=== PATIENT | male | born 1985 | race Hispanic/Latino ===

== ENCOUNTER 2016-11-28 18:01 | Inpatient (IN) | payer BC ==
[2016-11-28 18:24] VITALS: BMI 34.9
--- NOTE | 2016-11-28 19:01 | ED PDOC ---
Arrival/HPI - General Chief Complaint: Psychiatric Evaluation Time Seen by Provider: 11/28/16 18:59 Historian: Patient - History of Present Illness Narrative History of Present Illness (Text): 11/28/16 19:44 31-year-old male is being transferred to this emergency room from [facility] in [place] for psychiatric admission for bipolar d/o and anxiety by Dr. Lou Jacobsen. Patient has no complaints at this time. Denies any fever, headache, nausea, chest pain, shortness of breath, abdominal pain. Past Medical History - Provider Review Nursing Documentation Reviewed: Yes - Psychiatric Hx Substance Use: No Family/Social History - Physician Review Nursing Documentation Reviewed: Yes Family/Social History: Unknown Family HX Smoking Status: Never Smoked Hx Alcohol Use: No Hx Substance Use: No Allergies/Home Meds Allergies/Adverse Reactions: Allergies antihistamines Allergy (Uncoded 11/28/16 18:31) ANAPHYLAXIS Home Medications: Home Meds Medication Instructions Recorded Confirmed Alprazolam [Xanax] 0.25 mg PO HS 11/28/16 11/28/16 Carbamazepine [Carbamazepine ER] 400 mg PO BID 11/28/16 11/28/16 Cholecalciferol [Vitamin D] 250,000 iu PO 11/28/16 Naproxen [Naprosyn] 500 mg PO BID 11/28/16 11/28/16 OLANZapine [ZyPREXA] 2.5 mg PO HS 11/28/16 11/28/16 Perampanel [Fycompa] 8 mg PO HS 11/28/16 11/28/16 Review of Systems - Review of Systems Constitutional: Normal. absent: Fatigue, Weight Change, Fevers Respiratory: Normal. absent: SOB, Cough, Sputum Cardiovascular: Normal. absent: Chest Pain, Palpitations, Orthopnea Gastrointestinal: Normal. absent: Abdominal Pain, Vomiting, Appetite Changes Musculoskeletal: Normal. absent: Arthralgias, Back Pain, Neck Pain Skin: Normal. absent: Rash, Pruritis, Skin Lesions Neurological: Normal. absent: Headache, Dizziness, Focal Weakness Psychiatric: Normal, Anxiety, Depression. absent: Suicidal Ideation Physical Exam Vital Signs Reviewed: Yes Vital Signs Temp Pulse Resp BP Pulse Ox 11/28/16 18:02 97.0 F L 82 14 125/85 96 Temperature: Afebrile Blood Pressure: Normal Pulse: Regular Respiratory Rate: Normal Appearance: Positive for: Well-Appearing, Non-Toxic, Comfortable Pain Distress: None Mental Status: Positive for: Alert and Oriented X 3 - Systems Exam Head: Present: Atraumatic, Normocephalic Pupils: Present: PERRL Mouth: Present: Moist Mucous Membranes Pharnyx: Present: Normal Neck: Present: Normal Range of Motion. No: MIDLINE TENDERNESS, Lymphadenopathy Respiratory/Chest: Present: Clear to Auscultation, Good Air Exchange. No: Respiratory Distress, Accessory Muscle Use, Wheezes, Rhonchi Cardiovascular: Present: Regular Rate and Rhythm, Normal S1, S2. No: Murmurs Abdomen: No: Tenderness, Distention, Rebound, Guarding Back: Present: Normal Inspection. No: CVA Tenderness, Midline Tenderness Upper Extremity: Present: Normal Inspection, Normal ROM, NORMAL PULSES. No: Edema Lower Extremity: Present: Normal Inspection, NORMAL PULSES, Normal ROM. No: Edema Neurological: Present: GCS=15, CN II-XII Intact, Speech Normal, Motor Func Grossly Intact, Normal Sensory Function Skin: Present: Warm, Dry, Normal Color. No: Rashes Psychiatric: Present: Alert, Oriented x 3, Normal Insight, Normal Concentration Medical Decision Making ED Course and Treatment: 11/28/16 19:48 31-year-old male is being transferred to this emergency room from [facility] in [place] for psychiatric admission for bipolar d/o and anxiety by Dr. Lou Jacobsen. Arrangements made for inpt psych admission. - PA / OLIVE GRADER / Resident Statement MD/DO has reviewed & agrees with the documentation as recorded. Disposition/Present on Arrival - Present on Arrival Any Indicators Present on Arrival: No History of DVT/PE: No History of Uncontrolled Diabetes: No Urinary Catheter: No History of Decub. Ulcer: No History Surgical Site Infection Following: None - Disposition Have Diagnosis and Disposition been Completed?: Yes Diagnosis: Bipolar disorder, Anxiety Disposition: HOSPITALIZED Disposition Time: 19:00 Patient Plan: Admission Patient Problems: Current Active Problems Problem Status Onset Bipolar disorder Acute Anxiety Acute Condition: STABLE
[2016-11-28] MEDS ORDERED: Alum-Mag Hydrox-Simethicone Susp (30 mL) PO PRN (22:13)
[2016-11-28] MEDS ORDERED: Magnesium Hydroxide Susp 30 ml UD PO PRN (22:13)
[2016-11-28] MEDS ORDERED: Naproxen 550 mg Tab PO SCH (22:15)
--- NOTE | 2016-11-29 00:02 | PCM.BM ---
<Carlos Matos - Last Filed: 11/29/16 00:00> Treatment Plan Problems - Problems identified on initial assessmt anxiety Date Initiated: 11/28/16 Time Initiated: 20:50 Assessment reference: NA Status: Active depression Date Initiated: 11/28/16 Time Initiated: 20:50 Assessment reference: NA Status: Referred Treatment assets and liabiliti Patient Assests: cooperative, educated, self-reliant, ADL independent Patient Liabilities: financial problems, poor support system, relationship conflicts - Milieu Protocol Maintain good personal hygiene: daily Encourage regular showers, daily Remind patient to perform daily oral care, daily Assist patient to perform ADL's Conduct patient checks and document Observation sheet: Q15 minutes Maintain personal safety: every shift Educate patient to report safety concerns to staff, every shift Monitor environment for contraband/sharps Medication safety: Monitor for expected outcome, potential side effects: every shift, Assess barriers to learning: every shift, Assess readiness for medication education: every shift Discharge/Continuing Care - Education Needs Education Needs: Patient Medication, Patient Diagnosis/Disease Process, Patient Coping Skills, Patient Anger Management skills - Discharge Discharge Criteria: Tolerates medication w/o severe side effects, Ability to care for self Discharge to:: Home <Lou Cat - Last Filed: 11/29/16 08:35> - Diagnosis (1) PTSD (post-traumatic stress disorder) Status: Acute Interventions: 11/29/16 08:35 Psychoeducation Psychopharmacology/adjustment of medications as needed/ monitoring possible side effects Evaluate pt on daily basis Compliance with medications and follow up appointments Suicide and homicide risk assessment and prevention, coping strategies, safety plan Reduction of symptoms Relaxation techniques and breathing exercises Improve functional status Family involvement As outpatient: cognitive behavioral therapy (2) Bipolar disorder Status: Acute Interventions: 11/29/16 08:36 Psychoeducation Psychopharmacology/adjustment of medications as needed/ monitoring possible side effects Monitor blood level of mood stabilizers Evaluate pt on daily basis Compliance with medications and follow up appointments Suicide and homicide risk assessment and prevention, coping strategies, safety plan Relapse prevention Reduction of symptoms Improve functional status Family involvement As outpatient: cognitive behavioral therapy <Isabel Alcantara - Last Filed: 11/30/16 14:48>
[2016-11-29 00:25] VITALS: O2SAT 95
[2016-11-29] MEDS ORDERED: carBAMazepine Chew Tab 100 MG Chew Tab PO SCH (08:00)
[2016-11-29 08:28] LABS: CHOLESTEROL 194 mg/dL (130-200); GLUCOSE,FASTING 96 mg/dL (65-110)
[2016-11-29] MEDS: Naproxen 550 mg Tab PO PRN (10:09)
--- NOTE | 2016-11-29 15:41 | CP.PCM.CON ---
History of Present Illness - History of Present Illness History of Present Illness: Neurology consult note for Dr. Kendrick's service HPI: Patient is a 31yo male with past medical history of bipolar disorder, anxiety, depression and seizure disorder that presented for inpatient psychiatric treatment for the aforementioned issues. Patient has a history of seizure disorder for which he is currently on tegretol 400mg PO BID. Neurology consulted for evaluation of seizure disorder. Patient denied chest pain, palpitations, SOB, abdominal pain, nausea, vomiting, focal weakness, numbness, tingling. 12point ROS as per HPI above otherwise negative PMH: as stated above Allergies: antihistamines Medications: reviewed and as per chart Family Hx: reviewed, non-contributory Past Patient History - Past Social History Smoking Status: Never Smoked - NEUROLOGICAL Hx Seizures: Yes - PSYCHIATRIC Hx Bipolar Disorder: Yes Hx Depression: Yes Hx Substance Use: No Meds Allergies/Adverse Reactions: Allergies Allergy/AdvReac Type Severity Reaction Status Date / Time antihistamines Allergy ANAPHYLAXIS Uncoded 11/28/16 23:02 - Medications Medications: Current Medications Acetaminophen (Tylenol 325mg Tab) 650 mg PO Q4 PRN PRN Reason: Pain, moderate (4-7) Al Hydrox/Mg Hydrox/Simethicone (Maalox Plus 30 Ml) 30 ml PO DAILY PRN PRN Reason: Upset Stomach Alprazolam (Xanax) 0.25 mg PO HS PRN; Protocol PRN Reason: Anxiety Stop: 12/05/16 22:16 Carbamazepine (Tegretol) 400 mg PO BID KERRI PRN Reason: Protocol Last Admin: 11/29/16 09:57 Dose: 400 mg Home Med (Home Med) 1 unit PO HS KERRI Lorazepam (Ativan) 2 mg PO Q6 PRN; Protocol PRN Reason: Agitation Lorazepam (Ativan) 2 mg IM Q6H PRN; Protocol PRN Reason: Anxiety Magnesium Hydroxide (Milk Of Magnesia) 30 ml PO DAILY PRN PRN Reason: Constipation Naproxen (Anaprox Ds) 550 mg PO BID PRN PRN Reason: Pain, moderate (4-7) Last Admin: 11/29/16 10:09 Dose: 550 mg Olanzapine (Zyprexa) 2.5 mg PO HS KERRI PRN Reason: Protocol Last Admin: 11/28/16 22:55 Dose: 2.5 mg Ziprasidone (Geodon Cap) 20 mg PO Q6 PRN; Protocol PRN Reason: Agitation Ziprasidone (Geodon Inj) 20 mg IM Q6 PRN; Protocol PRN Reason: Agitation Physical Exam - Constitutional Appears: No Acute Distress - Head Exam Head Exam: ATRAUMATIC, NORMAL INSPECTION, NORMOCEPHALIC - Eye Exam Eye Exam: EOMI Pupil Exam: PERRL - ENT Exam ENT Exam: Normal Exam - Neck Exam Neck exam: Positive for: Normal Inspection - Respiratory Exam Respiratory Exam: Clear to Auscultation Bilateral. absent: Rales, Rhonchi, Wheezes - Cardiovascular Exam Cardiovascular Exam: RRR, +S1, +S2. absent: Gallop, Rubs, Systolic Murmur - GI/Abdominal Exam GI & Abdominal Exam: Soft. absent: Distended, Firm, Guarding, Rebound, Rigid - Extremities Exam Extremities exam: Positive for: normal inspection. Negative for: pedal edema - Neurological Exam Neurological exam: Alert, CN II-XII Intact, Oriented x3 - Skin Skin Exam: Dry, Intact, Normal Color, Warm Results - Vital Signs Recent Vital Signs: Last Vital Signs Temp 97.4 F L 11/28/16 20:40 Pulse 88 11/28/16 20:40 Resp 18 11/28/16 20:40 BP 128/91 H 11/28/16 20:40 Pulse Ox 95 11/28/16 20:40 - Labs Labs: Laboratory Results - last 24 hr 11/29/16 11/29/16 07:40 07:40 Fasting Glucose 96 Triglycerides 178 H Cholesterol 194 LDL Cholesterol Direct 127 HDL Cholesterol 42 TSH 3rd Generation 4.25 Assessment & Plan - Assessment and Plan (Free Text) Plan: 31yo male with history of seizure disorder, bipolar disorder, depression, anxiety presents for inpatient psychiatric treatment. Neurology consulted for evaluation of seizure disorder. -EEG has been ordered and pending read -In the meantime, recommend continue tegretol 400mg PO BID -Continue inpatient psychiatric treatment as indicated -Further recommendations as per attending, Dr. Kendrick Patient seen and case discussed/reviewed with attending, Dr. Kendrick - Date & Time Date: 11/29/16 Time: 15:41
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
[2016-11-29] MEDS: FYCOMPA 8 MG PO SCH (21:37)
[2016-11-29] MEDS ORDERED: FYCOMPA 8 MG PO SCH (22:00)
--- NOTE | 2016-11-30 11:46 | CON ---
HISTORY OF PRESENT ILLNESS: The patient is 31 years old, was called for medical consult. The patient was seen and examined in the dayroom, has appropriate affect; however, seemed little anxious. The patient stated he has history of bipolar disorder, has been recently very depressed because his left him and he was very angry with his brother who brought him to the emergency room for further help. PAST MEDICAL HISTORY: Significant for: 1. Anxiety disorder. 2. Bipolar disorder. 3. History of seizure disorder, status post suicidal attempt, he tried to overdose with his seizure medication thinking that will calm him down. Otherwise, he does not have any significant chest pain or shortness of breath. No nausea, vomiting, or diarrhea. ALLERGIES: HE IS ALLERGIC TO ANTIHISTAMINE. MEDICATION AT HOME: He is on Tegretol 400 mg twice a day, Xanax 0.25 at bedtime, Fycompa 8 mg at bedtime, Zyprexa 2.5 at bedtime and Naprosyn for his back pain. SOCIAL HISTORY: He was but now he is . Denies smoking or drinking. REVIEW OF SYSTEMS: Significant for feeling anxious and depressed at times. His last seizure was in June. Other than that, he has been suffering from seizures for last 5 to 6 years. PHYSICAL EXAMINATION: GENERAL: He is awake, alert, oriented, communicative, ambulatory. VITAL SIGNS: He is afebrile, pulse 91, respiration 18, blood pressure 122/53. LUNGS: Bilateral fair airflow. No rhonchi or crackles. HEART: S1 and S2 audible. ABDOMEN: Soft, nontender. No rebound. No guarding. NEUROLOGICAL: The patient is awake, alert, oriented, communicative, ambulatory. LABORATORY DATA: Triglyceride 178, TSH is 4.25. Fasting blood sugar is 96. ASSESSMENT: 1. Seizure disorder. 2. Bipolar disorder. 3. Anxiety disorder. 4. Hypertension. 5. Chronic back pain. PLAN: So currently, the patient is on Naprosyn. He is on multiple psych medications including Zyprexa, Ativan, Cogentin, Risperdal, Tegretol and EEG has been ordered. Thanks for consult. We will follow he patient with you. David Hines MD
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
--- NOTE | 2016-11-30 15:50 | PN ---
DATE: SUBJECTIVE: The patient is 31 years old, seen and examined, ambulatory, not in any distress, eating and tolerating, offers no complaint. PHYSICAL EXAMINATION: VITAL SIGNS: He is afebrile, pulse 75, respirations 20 and blood pressure 127/72. LUNGS: Bilateral fair air flow. No rhonchi or crackle. HEART: S1 and S2 audible. ABDOMEN: Soft and nontender. No rebound. No guarding. NEUROLOGIC: He is awake, alert, oriented and communicative. ASSESSMENT: 1. Bipolar disorder. 2. Anxiety disorder. 3. Seizure disorder. 4. History of chronic back pain. PLAN: Medically, he is stable on current medical treatment. I will signoff and see the patient as needed. David Hines MD
--- NOTE | 2016-11-30 16:51 | EEG ---
DATE: CONDITION OF THE RECORDING: Awake and history of seizure. PAST MEDICAL HISTORY: History of anxiety, bipolar . DESCRIPTION: Background activity of this tracing was composed of 8 to 9 cycles per second of alpha rhythm. A small amount of beta activity 16 to 20 cycles per second was noted in the tracing. Theta activity 5 to 7 cycles per second was noted in the tracing. Drowsiness was composed of mixed beta and theta activities. No paroxysmal activity was seen in the record. IMPRESSION: Normal awake, drowsy electroencephalogram. Beny Kendrick MD
[2016-11-30] MEDS: FYCOMPA 8 MG PO SCH (21:06)
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
[2016-12-01] MEDS: FYCOMPA 8 MG PO SCH (21:17)
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
[2016-12-02] MEDS: FYCOMPA 8 MG PO SCH (22:51)
--- NOTE | 2016-12-03 09:13 | PCM.PYCHPN ---
Psychiatric Progress Note - Psychiatric Progress Note Patient seen today, length of contact: 25 min Patient Chief Complaint: better Problems Identified/Issues Discussed: I reviewed assessment and recent notes. Patient was interviewed in the dayroom. He is fairly groomed and presents as calm, related and well-oriented to month, year, location and circumstances. Reports that he is getting better on the unit. Slept well. Denies any new concerns since yesterday except for blood in urine. He is coherent and doesn't demonstrate any symptoms of a thought disorder. Patient is tolerating his medications and denies any new pain or discomfort. Staff notes indicate that patient has been visible and pleasant on the unit. Observed Interacting with other patients There were no behavioral issues overnight Diagnostic Results: r/o bipolar disorder, most recent episode mixed Rule out impulse control disorder As per history questionable Asperger's syndrome r/o PTSD Medication Change: No Medical Record Reviewed: Yes Mental Status Examination - Cognitive Function Orientation: Person, Place, Situation Attention: WNL - Mood Mood: Neutral - Affect Affect: Other (calm, neutral) - Speech Speech: Appropriate - Formal Thought Process Formal Thought Process: No Impairment - Suicidal Ideation Suicidal Ideation: No - Homicidal Ideation Homicidal Ideation: No Goal/Treatment Plan - Goal/Treatment Plan Need for Continued Stay: Remain at risks for inpatient hospitalization, Severe depression anxiety, Discharge may exacerbated symptoms, Severe functional impairment Progress Toward Problem(s) and Goals/Treatment Plan: * c/w current tx and plan * No new weekend labs * Vitals reviewed and noted below: Selected Entries 12/02/16 12/02/16 06:59 15:00 Temperature 97.8 F Pulse Rate 67 83 Respiratory 18 Rate Blood Pressure 130/75 125/77 Estimated Date of D/C: 12/05/16 (will monitor closely)
[2016-12-03 10:22] LABS: PH,URINE 6.5 (4.7-8.0); URINE APPEARANCE CLEAR (CLEAR); URINE BILIRUBIN NEGATIVE (NEGATIVE); URINE BLOOD NEGATIVE (NEGATIVE); URINE COLOR YELLOW (YELLOW); URINE GLUCOSE (UA) NEGATIVE (NEGATIVE); URINE KETONE NEGATIVE (NEGATIVE); URINE LEUKOCYTE ESTERASE NEGATIVE Leu/uL (NEGATIVE); URINE PROTEIN NEGATIVE mg/dL (<30 mg/dL); URINE UROBILINOGEN 0.2 E.U./dL (<1 E.U./dL)
[2016-12-03] MEDS: Naproxen 550 mg Tab PO PRN (11:18)
[2016-12-03] MEDS: FYCOMPA 8 MG PO SCH (21:20)
[2016-12-04 06:59] VITALS: RESP 20
[2016-12-04] MEDS: Naproxen 550 mg Tab PO PRN (08:50)
--- NOTE | 2016-12-04 10:20 | PCM.PYCHPN ---
Psychiatric Progress Note - Psychiatric Progress Note Patient seen today, length of contact: 25 min Patient Chief Complaint: better Problems Identified/Issues Discussed: I reviewed recent notes and patient was interviewed at bedside. He is fairly groomed and presents as calm, related and well-oriented to month, year, location and circumstances. Still feels he is improving on the unit. Slept well. He is coherent and doesn't demonstrate any symptoms of a thought disorder. Patient is tolerating his medications and denies any new pain or discomfort. Denies any other new concerns. Reported blood In his urine yesterday , urinalysis was negative. Denies further complaints. Staff notes indicate that patient has been visible and pleasant on the unit. Observed interacting with other patients. There were no behavioral issues over the weekend. Diagnostic Results: r/o bipolar disorder, most recent episode mixed Rule out impulse control disorder As per history questionable Asperger's syndrome r/o PTSD Medication Change: No Medical Record Reviewed: Yes Mental Status Examination - Cognitive Function Orientation: Person, Place, Situation Attention: WNL - Mood Mood: Neutral - Affect Affect: Other (calm, neutral) - Speech Speech: Appropriate - Formal Thought Process Formal Thought Process: No Impairment - Suicidal Ideation Suicidal Ideation: No - Homicidal Ideation Homicidal Ideation: No Goal/Treatment Plan - Goal/Treatment Plan Need for Continued Stay: Remain at risks for inpatient hospitalization, Severe depression anxiety, Discharge may exacerbated symptoms, Severe functional impairment Progress Toward Problem(s) and Goals/Treatment Plan: * c/w current tx and plan * Vitals reviewed and noted below: Selected Entries 12/03/16 12/03/16 06:38 16:03 Temperature 97.7 F Pulse Rate 86 80 Respiratory 18 Rate Blood Pressure 132/87 133/79 \ * New weekend labs noted below: Laboratory Results - last 24 hr 12/03/16 10:00 Urine Color Yellow Urine Appearance Clear Urine pH 6.5 Ur Specific [place] 1.020 Urine Protein Negative Urine Glucose (UA) Negative Urine Ketones Negative Urine Blood Negative Urine Nitrate Negative Urine Bilirubin Negative Urine Urobilinogen 0.2 Ur Leukocyte Esterase Negative Estimated Date of D/C: 12/05/16 (will monitor closely)
[2016-12-04] MEDS: FYCOMPA 8 MG PO SCH (21:19)
[2016-12-05 07:01] VITALS: BP 138/87; PULSE 67; TEMP 97.8
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
== END 2016-12-05 16:15 | disposition home or self-care (01) | DRG 885 ==
LOC: ED 18:01 → ERH 19:05 → PSYC 20:40
PROVIDERS: ADMIT Psychiatry & Neurology Psychiatry; ATTEND Psychiatry & Neurology Psychiatry
DX: F31.60 Bipolar disorder, current episode mixed, unspecified (principal); F43.10 Post-traumatic stress disorder, unspecified; G40.909 Epilepsy, unspecified, not intractable, without status epilepticus; I10 Essential (primary) hypertension; F84.5 Asperger's syndrome; G89.29 Other chronic pain; M54.9 Dorsalgia, unspecified; Z91.14 Patient's other noncompliance with medication regimen